=== PATIENT | male | born 1985 | race Caucasian/White ===

== ENCOUNTER 2022-07-07 14:33 | Emergency (ER) | payer SELFPAY ==
[2022-07-07] MEDS ORDERED: Ibuprofen 600 MG Tab PO ONE (17:12)
[2022-07-07] MEDS ORDERED: Acetaminophen/HYDROcodone 325-5 MG Tab PO ONE (17:17)
[2022-07-07 18:17] VITALS: BP 120/80; PULSE 75
== END 2022-07-07 18:26 | disposition home or self-care (01) ==
LOC: MW.ED 14:33
DX: M23.91 Unspecified internal derangement of right knee (principal); Z88.8 Allergy status to other drugs, medicaments and biological substances; X50.1XXA Overexertion from prolonged static or awkward postures, initial encounter
CPT/HCPCS: 73562; 99283; A9270; 99282

== ENCOUNTER 2024-06-05 06:59 | Emergency (ER) | payer BC ==
[2024-06-05] MEDS: Diphtheria,Pertussis(Acell),Tetanus Vaccine 0.5 ML Syringe IM ONE (07:43)
[2024-06-05] MEDS: Ketorolac 30 MG/ML SDV IM ONE (08:22)
[2024-06-05] MEDS: Water For Injection, Sterile 10 ML SDV INJECT ONE (08:22)
[2024-06-05] MEDS: Lidocaine 1% 10 ML MDV INJECT ONE (08:22)
[2024-06-05] MEDS: Acetaminophen/HYDROcodone 325-5 MG Tab PO ONE (08:23)
[2024-06-05] MEDS: ceFAZolin 1 GM Vial IM ONE (08:23)
[2024-06-05] MEDS: Bacitracin Oint 1 GM U/D Packet TOP ONE (09:37)
[2024-06-05 09:45] VITALS: BP 154/97; PULSE 68
== END 2024-06-05 10:07 | disposition home or self-care (01) ==
LOC: MW.ED 06:59
DX: S62.631A Displaced fracture of distal phalanx of left index finger, initial encounter for closed fracture (principal); S61.211A Laceration without foreign body of left index finger without damage to nail, initial encounter; Z23 Encounter for immunization; Z88.8 Allergy status to other drugs, medicaments and biological substances; Z75.8 Other problems related to medical facilities and other health care; W20.8XXA Other cause of strike by thrown, projected or falling object, initial encounter
CPT/HCPCS: 12001; 73140-26-F1; 73140-F1; 90471; 90715; 96372; 99283; 99283-25; A9270-GY; J0690; J1885; J3490